=== PATIENT | male | born 1990 | race African-American/Black ===

== ENCOUNTER 2022-10-09 18:22 | Emergency (ER) | payer OTHER ==
[2022-10-09] MEDS ORDERED: HYDROmorphone 1 MG/ML Syringe IVPUSH STA (18:35)
[2022-10-09] MEDS ORDERED: Sodium Chloride 0.9% 10 ML Syringe FLUSH PRN (18:35)
[2022-10-09] MEDS ORDERED: Ondansetron 4 MG/2 ML SDV IVPUSH ONE (18:36)
[2022-10-09] MEDS ORDERED: Propofol 200 MG/20 ML SDV IVPUSH ONE (19:04)
[2022-10-09] MEDS ORDERED: Lactated Ringers 1,000 ML IV SCH (19:30)
== END 2022-10-09 20:40 | disposition home or self-care (01) ==
LOC: JD.ED 18:22
DX: S43.004A Unspecified dislocation of right shoulder joint, initial encounter (principal); M21.921 Unspecified acquired deformity of right upper arm; X50.0XXA Overexertion from strenuous movement or load, initial encounter
CPT/HCPCS: 23650; 73030; 96374; 96375; 99152; 99283; J1170; J2405; J2704; J3490; J7120